=== PATIENT | female | born 1995 ===

== ENCOUNTER 2018-05-15 12:19 | Emergency (ER) | payer SELFPAY ==
--- NOTE | 2018-05-15 17:23 | C.PDOC ---
History Of Present Illness 22 year old female presents to the ED for evaluation of recurrent breast tenderness and milky leakage from nipples bilaterally. Patient states she has been experiencing these symptoms during her menstrual period for the past 6 months. Patient states she is currently asymptomatic but was in the hospital handling aram care, and decided to come in for evaluation. Patient states she has been evaluated for the same in the past, and results were unremarkable. Patient denies swelling, tenderness or leakage from breasts. Time Seen by Provider: 05/15/18 16:48 Chief Complaint (Nursing): Breast Problem History Per: Patient History/Exam Limitations: no limitations Onset/Duration Of Symptoms: Intermittent Episodes (6 months ) Current Symptoms Are (Timing): Better Additional History Per: Patient Past Medical History Reviewed: Historical Data, Nursing Documentation, Vital Signs - Medical History PMH: No Chronic Diseases Surgical History: No Surg Hx Family History: States: Unknown Family Hx Review Of Systems Musculoskeletal: Positive for: Other (breast tenderness, leakage of milky discharge from nipple) Physical Exam - Physical Exam Appears: Non-toxic, No Acute Distress Skin: Normal Color, Warm, Dry Head: Atraumatic, Normacephalic Eye(s): bilateral: Normal Inspection Oral Mucosa: Moist Neck: Supple Chest: Symmetrical, No Deformity, No Tenderness, No Other (swelling or tenderness to bilateral breasts, no drainage noted) Cardiovascular: Rhythm Regular, No Murmur Respiratory: Normal Breath Sounds, No Rales, No Rhonchi, No Wheezing Extremity: Normal ROM, Capillary Refill (less than 2 seconds ) Neurological/Psych: Oriented x3, Normal Speech, Normal Cognition Disposition - Disposition Disposition: HOME/ ROUTINE Disposition Time: 17:25 Condition: STABLE Instructions: Breast Care for the Non-breast Feeding Woman (ED) Forms: [employer] (Ukrainian) - Clinical Impression Clinical Impression: Nipple discharge - Scribe Statement The provider has reviewed the documentation as recorded by the Scribe (Ernestina Villatoro) Provider Attestation: All medical record entries made by the Scribe were at my direction and personally dictated by me. I have reviewed the chart and agree that the record accurately reflects my personal performance of the history, physical exam, medical decision making, and the department course for this patient. I have also personally directed, reviewed, and agree with the discharge instructions and disposition.
== END 2018-05-15 16:50 | disposition home or self-care (01) ==
LOC: C.ER 12:19
DX: N64.52 Nipple discharge (principal)